=== PATIENT | female | born 1975 | race Caucasian/White ===

== ENCOUNTER → 2017-07-21 | Outpatient (CLI) | payer OTHER ==
[2017-07-21 22:38] LABS: Basophils % (A) 0 %; CH 31.1; CHCM 33.6; Eosinophils # (A) 0.1 k/uL (0-0.7); Eosinophils % (A) 1 %; HDW 2.66; HGB 12.7 gm/dL (11.4-16.0); Luc # (Auto) 0.17; Luc % (Auto) 2; Lymphocytes # (A) 1.8 k/uL (1.0-4.8); Lymphocytes % (A) 16 %; MCH 31.1 pg (25.0-35.0); MCHC 33.5 g/dL (31.0-37.0); MCV 92.8 fL (80.0-100.0); Mean Platelet Volume 8.3; Monocytes # (A) 0.8 k/uL (0-1.0); Monocytes % (A) 7 %; Neutrophils # (A) 8.2 k/uL (1.3-7.7); Neutrophils % (A) 74 %; RDW 12.5 % (11.5-15.5); WBC 11.1 k/uL (3.8-10.6)
== END | disposition home or self-care (01) ==
LOC: LABPAT 15:10
PROVIDERS: ATTEND Obstetrics & Gynecology
DX: Z01.812 Encounter for preprocedural laboratory examination (principal); N92.1 Excessive and frequent menstruation with irregular cycle
CPT/HCPCS: 36415; 85025

== ENCOUNTER 2017-07-22 09:04 | Day surgery (SDC) | payer OTHER ==
[2017-07-21 09:01] VITALS: BMI 23.0
--- NOTE | 2017-07-21 19:08 | HP ---
HISTORY AND PHYSICAL HISTORY OF PRESENT ILLNESS: The patient is a 42-year-old, 4, para 2-1-1-3 who was referred by Dr. Grady Chu for evaluation of menometrorrhagia. She had specific complaints of increasingly heavy cycles over the last year or so during which she occasionally bleeds through all of her protection. It has become since that time increasingly irregular and unpredictable as well. She has to this point been using condoms for contraception and declined interest in hormonal manipulation of any kind. She has expressed an interest in NovaSure endometrial ablation and has also requested to undergo laparoscopic bilateral tubal occlusion under the same anesthetic so as to cover contraception as well. She is aware of multiple other options for treatment. PAST MEDICAL HISTORY: Significant for ADHD and allergic rhinitis. PAST SURGICAL HISTORY: Significant for appendectomy and cholecystectomy. She denies any anesthetic concerns. OBSTETRICAL HISTORY: 4, para 2-1-1-3 with one 34 week normal delivery and 2 term deliveries as well as one miscarriage. Current method of contraception is condoms. GYNECOLOGIC HISTORY: Is unremarkable with no history of any infections to include STDs. FAMILY HISTORY: Noncontributory. SOCIAL HISTORY: The patient is and is a nonsmoker. She reports occasional alcohol and denies any other social concerns. CURRENT MEDICATIONS: Include Adderall XR 25 mg daily. ALLERGIES: No known drug allergies. REVIEW OF SYSTEMS: Is confined to history of present illness. PHYSICAL EXAMINATION: Vital signs are stable. The patient is afebrile. In general, this is a well- developed, well-nourished, white female, in no acute distress. Her heart has a regular rhythm and rate without murmur. Her lungs are clear to auscultation bilaterally in all cortes. Her abdomen is nondistended, has normoactive bowel sounds, soft, nontender, without any palpable masses, hepatosplenomegaly, or hernias. Her extremities are without any cyanosis, clubbing, or edema. Nontender to palpation bilaterally. Pelvic examination demonstrates normal external genitalia and BUS with normal vaginal mucosa and cervix. There is no cervical motion tenderness. Uterus is 5 weeks in size, mid plane, mobile, nontender, normal in shape. Endometrial biopsy was done and demonstrates benign findings. ASSESSMENT AND PLAN: Menometrorrhagia, undesired fertility: The patient is admitted for laparoscopic bilateral tubal occlusion using Filshie clips with subsequent diagnostic hysteroscopy and NovaSure endometrial ablation. Risks and complications of the procedures have been thoroughly discussed including risks of bleeding, bleeding requiring transfusion, infection, injury to local structures, to specifically include the bowel, bladder, and ureters as regards to the laparoscopy and uterine perforation, Asherman syndrome, and potential hematometra as regards the hysteroscopy and ablation. She has understood all these concerns and has agreed to proceed. We are scheduled for the morning of July 22, 2017 for the procedures as outlined above. This is the pre admission history and physical on [facility]. Dictation is done on 07/21 for 07/22 surgery. MMODL / IJN: [id number] /
[~2017-07-22 09:04] MED LIST: DEXAMETHASONE SOD PHOSPHATE 10 MG/ML 1 ML VIAL IV ONE; HYDROmorphone 1 MG/ML 1 ML SYRINGE IVP PRN; LACTATED RINGERS 1,000 ML IV SCH; MIDAZOLAM 2 MG/2 ML VIAL IV PRN; ONDANSETRON 4 MG/2 ML VIAL IVP ONE; Pre Op ABX Message 1 EACH MISC MISCELLANE ONE; SCOPOLAMINE 1.5MG/72HR PATCH TRANSDERM ONE
[2017-07-22 09:46] VITALS: RESP 16
[2017-07-22] MEDS ORDERED: LIDOCAINE 1% 20 ML VIAL (10MG/ML) FOR IV START INTRADERMA ONE (09:46)
[2017-07-22] MEDS ORDERED: SIMETHICONE 80 MG CHEWABLE PO PRN (10:06)
[2017-07-22] MEDS ORDERED: Acetaminophen-Codeine 300-30mg TAB PO PRN ×2 (10:06)
[2017-07-22] MEDS ORDERED: diphenhydrAMINE 50 MG/ML 1 ML VIAL IVP PRN (10:06)
[2017-07-22] MEDS ORDERED: METOCLOPRAMIDE 5 MG/ML 2 ML VIAL IVP PRN (10:06)
[2017-07-22] MEDS ORDERED: ONDANSETRON 4 MG/2 ML VIAL IVP PRN (10:06)
[2017-07-22] MEDS ORDERED: IBUPROFEN 600 MG TAB PO PRN (10:06)
[2017-07-22] MEDS ORDERED: KETOROLAC 30 MG/ML 1 ML VIAL IVP PRN (10:06)
[2017-07-22] MEDS ORDERED: MIDAZOLAM 2 MG/2 ML VIAL ONE (10:22)
[2017-07-22] MEDS ORDERED: ROCURONIUM BROMIDE 10 MG/ML 10 ML VIAL IV ONE (10:22)
[2017-07-22] MEDS ORDERED: ACETAMINOPHEN IV (For NPO) 1,000 MG/100 ML VIAL ONE (10:22)
[2017-07-22] MEDS ORDERED: PROPOFOL 10 MG/ML 20 ML VIAL IV ONE (10:22)
[2017-07-22] MEDS ORDERED: KETOROLAC 30 MG/ML 1 ML VIAL ONE (10:22)
[2017-07-22] MEDS ORDERED: fentaNYL (PF) 50 MCG/ML 2 ML AMP ONE (10:22)
[2017-07-22] MEDS ORDERED: LIDOCAINE 1% INJ 10MG/ML (20 ML MDV) ONE (10:22)
[2017-07-22] MEDS ORDERED: NEOSTIGMINE 1 MG/ML 10 ML VIAL ONE (10:22)
[2017-07-22] MEDS ORDERED: GLYCOPYRROLATE 0.2 MG/ML 2 ML VIAL ONE (10:22)
[2017-07-22] MEDS ORDERED: BUPIVACAINE (PF) 0.5% 30 ML VIAL SQ ONE (10:50)
--- NOTE | 2017-07-22 11:17 | P.OP ---
Date of Procedure: 07/22/17 Preoperative Diagnosis: #1. Menometrorrhagia #2. Undesired fertility Postoperative Diagnosis: Same Procedure(s) Performed: #1. Laparoscopic bilateral tubal occlusion with Filshie clips #2. Diagnostic hysteroscopy #3. Endometrial curettage #4. NovaSure endometrial ablation Implants: Anesthesia: IMANIA Surgeon: Dawood Vazquez Estimated Blood Loss (ml): 5 IV fluids (ml): 400 Urine output (ml): 30 Pathology: other (Endometrial curettings) Condition: stable Disposition: PACU Indications for Procedure: Operative Findings: Preoperative pelvic examination demonstrated a roughly 5-6 week midplane mobile normal shaped uterus with normal adnexa bilaterally. Intraoperatively, the uterus, tubes, and ovaries were entirely normal to inspection confirming the above findings. There was, however, an adhesion from the left ovary into its fossa and to a small portion of the sigmoid colon and rectum which could not be easily lysed and was left in place. The right ovary and tube were free and entirely normal. There was some endometriotic powder burn mendez noted in the pelvis. The remainder of the cul-de-sac was free of any findings. The appendix was surgically absent and the liver and diaphragm appeared normal as did the small and large intestine. From a vaginal perspective, the uterus sounded to 9 cm with a cervical length of 3.5 cm. Using the hysteroscope, the bilateral tubal ostia were seen but there was a fairly moderate amount of shaggy endometrial tissue present prompting endometrial curettage prior to ablation. A small to moderate amount of tissue was removed at curettage. The settings for the NovaSure tool for a length of 5.5 cm, a width of 4.4 cm and a total power of 133 W. Following the procedure which lasted for 99 seconds, the base unit read "procedure complete." The postprocedural hysteroscopic findings appeared excellent. The patient is a possible borderline candidate for vaginal hysterectomy, especially given the findings of the ovarian adhesion to the sigmoid colon. The uterus was not involved in the adhesive disease. Description of Procedure: Patient was prepped and draped in usual fashion after general endotracheal anesthesia was administered by the anesthesiologist. A weighted speculum was placed and the bladder was drained of approximately 30 mL of clear deng urine. The anterior lip of the cervix was grasped with a single-tooth tenaculum and an acorn cannula placed for manipulation. The speculum was removed and attention turned to the abdomen where a roughly 5 mm incision was made in a vertical fold of the umbilicus through a previous incision allowing insertion of a 5 mm optical port under direct visualization without difficulty. A pneumoperitoneum was established and Trendelenburg position utilized. A site was selected approximately 4-5 cm of above the pubic symphysis in the midline where a roughly 8 mm incision was made in the transverse plane allowing insertion of an 8 mm port under direct visualization without difficulty. The blunt probe and Trendelenburg positioning were utilized to sweep the bowel from the pelvis. The findings are as noted above. There was an adhesion from the ovary to the sigmoid colon and into its fossa which was dense enough that it was left in place. There were findings consistent with endometriosis scattered through the pelvis. The cul-de-sac appeared free of disease. The probe was replaced with the Filshie clip applicator which was utilized to place a clip across each fallopian tube in the isthmic portion approximately 2 cm from the uterine cornu on each side. The remainder of the abdomen was explored with the findings as noted above. The pneumoperitoneum was evacuated through the ports and the ports removed. The incisions were closed with interrupted subcuticular stitches of 4-0 Vicryl and then infused with approximate 5 mL each of half percent Marcaine without epinephrine. Steri-Strips were applied with Mastisol. Attention was returned to the vagina for cannula was removed after placing a speculum. Uterus was sounded to 9 cm with a cervical measurement of approximately 3-1/2 cm as noted above. Serial dilation was carried out to admit the diagnostic hysteroscope with the findings as noted above. Once adequate hysteroscopy had been carried out, the scope was set aside and further dilation carried out to admit the NovaSure tool. As there was a fair amount of shaggy tissue noted throughout the endometrium, sharp curettage was carried out onto a Telfa placed in the vagina and the tissue sent for pathological diagnoses. The NovaSure tool was then placed in the fundus of the uterus, opened, and seated well. The measurements are as noted above with a length of 5.5 cm, a width of 4.4 cm and a total power of 133 W. The cavity check was attempted and passed without difficulty. The tool was enabled and the run was started. After a run time of 99 seconds, the tool was closed, removed, and discarded. The base unit read "procedure complete." The diagnostic scope was replaced within the endometrial cavity and the findings appeared to be excellent. All instrumentation was then removed. One of the tenaculum sites was noted to have some small bleeding was made hemostatic with pressure. Estimated blood loss for the entire case was less than 5 mL. There were no complications. All sponge, instrument, and needle counts were correct. The patient tolerated the procedure well and proceeded to the recovery room in stable condition.
[2017-07-22] MEDS ORDERED: diphenhydrAMINE 50 MG/ML 1 ML VIAL IVP ONE (11:36)
[2017-07-22] MEDS: LACTATED RINGERS 1,000 ML IV SCH ×3 (11:46→12:24)
[2017-07-22 14:12] VITALS: BP 127/74; PULSE 54; TEMP 97
== END 2017-07-22 13:15 | disposition home or self-care (01) ==
LOC: OR 09:04
PROVIDERS: ATTEND Obstetrics & Gynecology
DX: N92.1 Excessive and frequent menstruation with irregular cycle (principal); Z30.2 Encounter for sterilization; N73.6 Female pelvic peritoneal adhesions (postinfective); F90.9 Attention-deficit hyperactivity disorder, unspecified type; Z79.899 Other long term (current) drug therapy
CPT/HCPCS: 81025; 88305; 58563; 58671; J2250; J1200; J1100; J2710; J2405; J2001; J3010; J1885; J1170; J0131; J2704